=== PATIENT | male | born 1940 | race Caucasian/White ===

== ENCOUNTER → 2017-05-20 | Outpatient (CLI) | payer MEDICARE ==
[~2017-05-20] MED LIST: ASPI-621 PO; BENA20TA2 PO; CHOL10002 PO; DOCOSAHEXANOIC ACID PO; DONE10TA7 PO; DONE5TAB7 PO; FLAXSEED OIL PO; GABA-826 PO; GINK120T3 PO; GLUC-149 PO; LACT1CAP37 PO; MELO7.5T31 PO; MULT-516 PO; NIAC500T9 PO; OMEP-110 PO; PUMP PO; RAMI5CAP PO; SELE200C PO; SILD20TA2 PO; SIMV20TA3 PO; TAMS-11 PO; UBID100T5 PO; UBID50TA PO; ZINC PO; [UNRECOGNIZED DRUG - OTHER] PO
[2017-05-20 09:15] LABS: HEMATOCRIT 41.7 % (39.2-51.8); HEMOGLOBIN 14.5 g/dL (13.7-18.0); WHITE BLOOD COUNT 7.4 x10^3/uL (3.4-10)
[2017-05-20 09:25] LABS: ASPARTATE AMINO TRANSFERASE 18 U/L (15-37); BLOOD UREA NITROGEN 14 mg/dL (7-18)
== END | disposition home or self-care (01) ==
LOC: STAR 07:52
PROVIDERS: ATTEND Surgery
DX: Z01.818 Encounter for other preprocedural examination (principal); C43.4 Malignant melanoma of scalp and neck; R94.31 Abnormal electrocardiogram [ECG] [EKG]; E78.5 Hyperlipidemia, unspecified; F03.90 Unspecified dementia, unspecified severity, without behavioral disturbance, psychotic disturbance, mood disturbance, and anxiety; K21.9 Gastro-esophageal reflux disease without esophagitis; N40.0 Benign prostatic hyperplasia without lower urinary tract symptoms; C61 Malignant neoplasm of prostate; G89.4 Chronic pain syndrome; I72.4 Aneurysm of artery of lower extremity
CPT/HCPCS: 36415; 80053; 85025; 85610; 93005

== ENCOUNTER 2017-05-27 09:54 | Day surgery (SDC) | payer MEDICARE ==
[~2017-05-27] VITALS: Ht 177.8 cm; Wt 86.0 kg
[2017-05-27] MEDS ORDERED: LACTATED RINGERS 1,000 ML IV SCH (10:12)
[2017-05-27] MEDS ORDERED: CEFAZOLIN 1,000 MG ONE (14:46)
[2017-05-27] MEDS ORDERED: REMIFENTANIL 2 MG ONE (14:46)
[2017-05-27] MEDS ORDERED: PROPOFOL 10 MG/ML, 20ML ONE (14:46)
[2017-05-27] MEDS ORDERED: PHENYLEPHRINE 10 MG/ML ONE (14:46)
[2017-05-27] MEDS ORDERED: SUFentanil 50 MCG/ML, 2ML ONE (14:46)
[2017-05-27] MEDS ORDERED: MIDAZOLAM 1 MG/ML, 2ML ONE (14:46)
[2017-05-27] MEDS ORDERED: ONDANSETRON 2MG/ML, 2ML ONE (14:46)
[2017-05-27] MEDS ORDERED: DEXAMETHASONE 4 MG/ML, 1ML ONE (14:46)
[2017-05-27] MEDS ORDERED: KETAMINE 10 MG/ML, 20ML ONE (14:46)
[2017-05-27] MEDS ORDERED: FENTANYL PF 100 MCG/2ML IV PRN (15:30)
[2017-05-27] MEDS ORDERED: ACETAMINOPHEN 325 MG TABLET PO PRN (15:30)
[2017-05-27] MEDS ORDERED: hydrALAzine 20 MG/ML, 1ML IV PRN (15:30)
[2017-05-27] MEDS ORDERED: ONDANSETRON 2MG/ML, 2ML IVPush PRN (15:30)
[2017-05-27] MEDS ORDERED: LABETALOL 5MG/ML, 20ML IV PRN (15:30)
== END 2017-05-27 18:30 ==
LOC: OUT 09:54
PROVIDERS: ATTEND Plastic Surgery
DX: C43.4 Malignant melanoma of scalp and neck (principal); I10 Essential (primary) hypertension; E78.00 Pure hypercholesterolemia, unspecified; N40.0 Benign prostatic hyperplasia without lower urinary tract symptoms; F03.90 Unspecified dementia, unspecified severity, without behavioral disturbance, psychotic disturbance, mood disturbance, and anxiety; G89.4 Chronic pain syndrome; Z87.891 Personal history of nicotine dependence; Z87.39 Personal history of other diseases of the musculoskeletal system and connective tissue; Z98.890 Other specified postprocedural states; Z79.82 Long term (current) use of aspirin
CPT/HCPCS: 11622; 15120; 38510; 78195; 88305; 88307; A9541; C1760; J0690; J1100; J2250; J2370; J2405; J2704; J7120

== ENCOUNTER → 2017-12-20 | Outpatient (CLI) | payer MEDICARE ==
[~2017-12-20] MED LIST changes: -BENA20TA2 PO; +BENA20TA4 PO; +DOBUTAMINE/D5W PMX 250 MG/250 ML ONE
== END | disposition home or self-care (01) ==
LOC: CARD 10:59
PROVIDERS: ATTEND Nurse Practitioner
DX: Z01.818 Encounter for other preprocedural examination (principal); I10 Essential (primary) hypertension; E78.5 Hyperlipidemia, unspecified; M46.82 Other specified inflammatory spondylopathies, cervical region; M46.86 Other specified inflammatory spondylopathies, lumbar region; Z72.0 Tobacco use; R06.02 Shortness of breath; R07.2 Precordial pain
CPT/HCPCS: 93017; 93350; J1250

== ENCOUNTER 2019-05-09 08:37 | Outpatient (CLI) | payer MEDICARE ==
[~2019-05-09 08:37] MED LIST changes: -ASPI-621 PO; +ASPI81TA45 PO; -BENA20TA4 PO; +BENA20TA54 PO; -DOBUTAMINE/D5W PMX 250 MG/250 ML ONE; -RAMI5CAP PO; +RAMI5CAP57 PO
== END 2019-05-09 23:59 | disposition home or self-care (01) ==
LOC: RAD 08:37
PROVIDERS: ATTEND Internal Medicine Gastroenterology
DX: K44.9 Diaphragmatic hernia without obstruction or gangrene (principal); K21.9 Gastro-esophageal reflux disease without esophagitis; R49.0 Dysphonia; R13.10 Dysphagia, unspecified; Z88.6 Allergy status to analgesic agent; Z87.891 Personal history of nicotine dependence
CPT/HCPCS: 74220; 74230